=== PATIENT | male | born 1930 | race Caucasian/White ===

== ENCOUNTER 2017-08-04 11:55 | Outpatient (CLI) | payer OTHER ==
[2014-01-21 15:36] VITALS: BMI 27.0
--- NOTE | 2017-08-04 13:10 | DI ---
EXAM: Two views of the chest. History: Chest pain, GERD. Comparison: Chest radiograph 01/21/2014 Findings: Heart size is upper limits of normal. Low lung volumes. No definite acute infiltrates. No appreciable pleural fluid and no pneumothorax. No acute osseous abnormalities. Atherosclerotic v ascular calcifications. Impression: No definite acute infiltrates.
== END 2017-08-04 11:56 | disposition home or self-care (01) ==
LOC: RAD 11:55
PROVIDERS: ATTEND Physician Assistant
DX: R19.8 Other specified symptoms and signs involving the digestive system and abdomen (principal)
CPT/HCPCS: 36415; 80053; 85027

== ENCOUNTER 2017-08-07 08:54 | Outpatient (CLI) | payer OTHER ==
[2014-01-21 15:36] VITALS: BMI 27.0
--- NOTE | 2017-08-07 10:01 | DI ---
EXAM: Single contrast upper GI History: GERD. Technique: Patient was given oral barium. Multiple spot films of the esophagus, stomach and duodenu m were obtained. There is projections. Findings: Moderate to large hiatal hernia. No esophageal mucosal lesions or filling defects. Gastr oesophageal reflux was observed. No ulceration is seen within the stomach. No gastric outlet obstru ction. The course and caliber of the duodenum is within normal limits without stricture or mucosal t hickening. Impression: A [id number] hiatal hernia with gastroesophageal reflux.
== END 2017-08-07 08:55 | disposition home or self-care (01) ==
LOC: RAD 08:54
PROVIDERS: ATTEND Physician Assistant
DX: R19.8 Other specified symptoms and signs involving the digestive system and abdomen (principal)

== ENCOUNTER 2017-11-18 08:13 | Outpatient (CLI) | payer OTHER ==
[2014-01-21 15:36] VITALS: BMI 27.0
--- NOTE | 2017-11-18 12:04 | US ---
Exam: Pierce-scale and color Doppler duplex ultrasonographic evaluation of the carotid arteries with s pectral waveform analysis. Reason for exam: Occlusion and stenosis. Comparison: None available. Technologist note: Evaluation is limited by patient's inability to be positioned and remained silent for the examination. FINDINGS: There is a moderate amount of atheromatous plaque seen in the proximal right internal orozco tid artery The right ECA measures 130 cm/sec Right CCA measures 110 cm/sec Right internal carotid artery peak systolic velocity measures 90 cm/sec Right internal carotid artery/CCA PSV ratio measures 0.9 Right internal carotid artery end-diastolic velocity measures 20 cm/sec The right vertebral artery was not seen on the exam. There is a small to moderate amount of atheromatous plaque seen in the left internal carotid artery The left ECA measures 130 cm/sec Left CCA measures 110 cm/sec Left internal carotid artery peak systolic velocity measures 90 cm/sec Left internal carotid artery/CCA PSV ratio measures 0.8 Left internal carotid artery end-diastolic velocity measures 0.2 cm/sec The left vertebral artery was not seen. Impression: 1. Limited evaluation secondary to patient's inability to comply with the examination. 2. No significant stenotic disease is seen by peak systolic velocity measurements in either the righ t or left internal carotid arteries. 3. The left and right vertebral arteries were not seen on the exam.
== END 2017-11-18 08:14 | disposition home or self-care (01) ==
LOC: RAD 08:13
PROVIDERS: ATTEND Physician Assistant
DX: I65.21 Occlusion and stenosis of right carotid artery (principal)

== ENCOUNTER 2018-03-22 07:44 | Outpatient (CLI) ==
[2014-01-21 15:36] VITALS: BMI 27.0
== END 2018-03-22 07:45 | disposition home or self-care (01) ==
LOC: LAB 07:44
PROVIDERS: ATTEND Physician Assistant
DX: D64.9 Anemia, unspecified (principal)
CPT/HCPCS: 36415; 85025